=== PATIENT | male | born 1955 | race Caucasian/White ===

== ENCOUNTER 2017-05-20 09:54 | Outpatient (CLI) | payer MEDICARE, OTHER | END 2017-05-20 09:55 | disposition short-term general hospital (02) | LOC: EMS 09:54 | PROVIDERS: ATTEND Surgery | DX: R07.9 Chest pain, unspecified (principal); R53.1 Weakness | CPT/HCPCS: A0425; A0427 ==

== ENCOUNTER 2017-05-25 14:55 | Outpatient (CLI) | payer OTHER ==
[2017-05-25 15:42] LABS: CALCIUM 8.6 mg/dL (8.5-10.3)
== END 2017-05-25 14:56 | disposition home or self-care (01) ==
LOC: LAB 14:55
PROVIDERS: ATTEND Internal Medicine Interventional Cardiology
DX: E11.9 Type 2 diabetes mellitus without complications (principal)
CPT/HCPCS: 36415; 80048

== ENCOUNTER 2018-07-14 14:28 | Outpatient (CLI) | payer OTHER ==
--- NOTE | 2018-07-14 16:15 | XRAY Report ---
Reason: PNEUMONIA,COMMUNITY ACQUIRED Procedure Date: 07/14/2018 Accession Number: [id number] / [id number] Procedure: XR - Chest 2 View X-Ray CPT Code: 70979 FULL RESULT: EXAM: CHEST RADIOGRAPHY EXAM DATE: 07/14/2018 02:51 PM. CLINICAL HISTORY: Pneumonia, community acquired. COMPARISON: CHEST 2 VIEW PA/LAT 10/12/2013 10:06 PM. TECHNIQUE: 2 views. FINDINGS: Lungs/Pleura: No focal opacities evident. No pleural effusion. No pneumothorax. Normal volumes. Mediastinum: The cardiomediastinal silhouette is stable for size, not enlarged. Other: Note is made of 2 coronary stents. IMPRESSION: No pulmonary consolidation is detected. RADIA
== END 2018-07-14 14:29 | disposition home or self-care (01) ==
LOC: DI 14:28
PROVIDERS: ATTEND Internal Medicine Critical Care Medicine
DX: J18.9 Pneumonia, unspecified organism (principal)
CPT/HCPCS: 71046

== ENCOUNTER 2018-09-03 13:38 | Outpatient (CLI) | payer OTHER ==
--- NOTE | 2018-09-06 08:46 | CT Report ---
Reason: SCREENING Procedure Date: 09/03/2018 Accession Number: [id number] / [id number] Procedure: CT - Low Dose Lung Cancer Screen CPT Code: FULL RESULT: EXAM CT LUNG SCREEN EXAM DATE: 09/03/2018 02:16 PM. HISTORY: 63-year-old patient with [id number] smoking history. Currently smoking: No. Quit in 2007. COMPARISON: None. TECHNIQUE: CT examination of the entire thorax without contrast was performed using low-dose technique. Thin section coronal, axial, sagittal and MIP axial images were obtained. In accordance with CT protocol optimization, one or more of the following dose reduction techniques were utilized for this exam: automated exposure control, adjustment of mA and/or KV based on patient size, or use of iterative reconstructive technique. FINDINGS: Nodules: Right upper lobe: 3 mm nodule on image 60 series 4. 6 mm nodule image 67. 3 mm nodule image 112. Right middle lobe: None. Right lower lobe: None. Left upper lobe: None. Left lower lobe: None. Emphysema: Mild to moderate. Pleura: Unremarkable. Aorta: Mildly calcified. Mediastinum: LAD coronary stents. Coronary calcifications: Moderate to severe. Other pulmonary findings: None. Other extrapulmonary findings: None. IMPRESSION: Lung-RADS ASSESSMENT CATEGORY: 3 - probably benign. Probability of malignancy: 1-2% RECOMMENDATION: Recommend followup low-dose chest CT in 6 months as per lung RADS guidelines. RADIA
== END 2018-09-03 13:39 | disposition home or self-care (01) ==
LOC: DI 13:38
PROVIDERS: ATTEND Internal Medicine Critical Care Medicine
DX: Z12.2 Encounter for screening for malignant neoplasm of respiratory organs (principal); J43.9 Emphysema, unspecified; Z87.891 Personal history of nicotine dependence

== ENCOUNTER 2019-01-07 22:07 | Outpatient (CLI) | payer OTHER | END 2019-01-07 22:08 | disposition short-term general hospital (02) | LOC: EMS 22:07 | PROVIDERS: ATTEND Surgery | DX: R06.02 Shortness of breath (principal); R61 Generalized hyperhidrosis; R07.89 Other chest pain | CPT/HCPCS: A0425; A0427 ==

== ENCOUNTER 2020-05-21 15:54 | Emergency (ER) | payer OTHER ==
[2020-05-21 16:01] VITALS: BP 136/71
[2020-05-21] MEDS ORDERED: LIDOCAINE-MPF 2% 5 ML VIAL SUBQ STA (16:08)
[2020-05-21] MEDS ORDERED: cephALEXin 250 MG CAPSULE PO STA (16:26)
--- NOTE | 2020-05-21 16:39 | ED Physician Documentation ---
PD HPI UPPER EXT INJURY - Stated complaint Stated Complaint: NAIL THRU L MIDDLE FINGER - Chief complaint Chief Complaint: Wound - History obtained from History obtained from: Patient - History of Present Illness Location: Left, Finger (3rd digit) Where injury occurred: Home Timing - onset: How many hours ago (1) Timing - duration: Hours (1) Timing - details: Abrupt onset Pain level max: 7 Pain level now: 5 Improved by: Rest Worsened by: Moving, Palpating Recently seen: Not recently seen - Additonal information Additional information: Td UTD. Patient was applying trim to a wall when a finishing nail was shot through the left third digit, distal aspect. Review of Systems Constitutional: denies: Fever, Chills GI: denies: Vomiting Skin: denies: Rash PD PAST MEDICAL HISTORY - Past Medical History Cardiovascular: High cholesterol, Coronary artery disease Respiratory: COPD Endocrine/Autoimmune: Type 2 diabetes - Past Surgical History Past Surgical History: Yes Cardiovascular: Coronary stent - Present Medications Home Medications: Ambulatory Orders Medication Instructions Recorded Confirmed cephALEXin [Keflex] 500 mg PO Q6H #40 capsule 05/21/20 - Allergies Allergies/Adverse Reactions: Allergies Allergy/AdvReac Type Severity Reaction Status Date / Time No Known Drug Allergies Allergy Verified 05/21/20 15:58 - Social History Does the pt smoke?: No Smoking Status: Never smoker Does the pt drink ETOH?: No Does the pt have substance abuse?: No - Immunizations Immunizations are current?: Yes - POLST Patient has POLST: No PD ED PE NORMAL - Vitals Vital signs reviewed: Yes - General General: Alert and oriented X 3, No acute distress - HEENT HEENT: Moist mucous membranes - Neck Neck: Supple, no meningeal sign - Derm Derm: Warm and dry - Neuro Neuro: Alert and oriented X 3 PD ED PE EXPANDED - Extremities CECIL UE/Hands Visual: 1 - tenderness (Finishing nail enters, lateral aspect and exits through the nail on medial aspect. NVI.) Results - Vitals Vitals: Vital Signs - 24 hr 05/21/20 15:58 Temperature 36.5 C Heart Rate 79 Respiratory 16 Rate Blood Pressure 136/71 H O2 Saturation 96 Oxygen O2 Source Room air Procedures - FB removal FB location: Subcutaneous FB removal preparation: Other (digital block, 2% lidocaine.) Removal method: Foreceps FB removal aftercare: No complications, Patient tolerated well, Removed successfully PD MEDICAL DECISION MAKING - ED course Complexity details: reviewed results, considered differential, d/w patient ED course: 64-year-old male presents to the emergency department with a left third digit finishing nail through the distal aspect of the digit. This was removed. Tolerated well. Wound was cleansed, bandaged. Tetanus up-to-date. Will place on Keflex. We will have him follow-up with his doctor for further care. Patient counseled regarding signs and symptoms for which I believe and urgent re-evaluation would be necessary. Patient with good understanding of and ag reement to plan and is comfortable going home at this time This document was made in part using voice recognition software. While efforts are made to proofread this document, sound alike and grammatical errors may occur. No radiopaque foreign body. Slight irregularity at the distal tuft of the third digit with punctate adjacent calcifications. Appearance is most suggestive of nondisplaced tuft fracture. Departure - Departure Disposition: 01 Home, Self Care Clinical Impression: Foreign body in subcutaneous tissue Condition: Good Instructions: ED Foreign Body Soft Tissue Removed Follow-Up: Navin Cohen MD [Primary Care Provider] - Within 1 week Prescriptions: cephALEXin [Keflex] 500 mg PO Q6H #40 capsule Comments: Follow-up with your doctor in 1 week for a wound check. Keep the wound clean. Take all antibiotics until gone. Return if you notice redness, swelling or drainage from the wound. Discharge Date/Time: 05/21/20 16:56
--- NOTE | 2020-05-21 16:59 | XRAY Report ---
PROCEDURE: Finger(s) LT INDICATIONS: L finger vs nail TECHNIQUE: AP hand, 3 views of the third finger(s) acquired. COMPARISON: None FINDINGS: Bones: There is slight irregularity at the distal tuft of the third digit. No suspicious bony lesions . Soft tissues: No suspicious soft tissue calcifications. No radiopaque foreign body. IMPRESSION: No radiopaque foreign body. Slight irregularity at the distal tuft of the third digit with punctate a djacent calcifications. Appearance is most suggestive of nondisplaced tuft fracture. Reviewed by: Carly Tobin MD on 05/21/2020 4:58 PM PST Approved by: Carly Tobin MD on 05/21/2020 4:58 PM PST Station ID: [id number]
== END 2020-05-21 16:56 | disposition home or self-care (01) ==
LOC: ED 15:54
DX: S61.343A Puncture wound with foreign body of left middle finger with damage to nail, initial encounter (principal); W45.0XXA Nail entering through skin, initial encounter; Y93.H3 Activity, building and construction; Y92.009 Unspecified place in unspecified non-institutional (private) residence as the place of occurrence of the external cause; E11.9 Type 2 diabetes mellitus without complications
CPT/HCPCS: 73140; 99283; 99284; A9270

== ENCOUNTER 2021-07-08 10:36 | Outpatient (CLI) | payer OTHER ==
--- NOTE | 2021-07-09 07:25 | CT Report ---
PROCEDURE: CHEST WO INDICATIONS: PULMONARY NODULE TECHNIQUE: Noncontrast 1mm axial images were acquired from the pulmonary apices to the posterior costophrenic an gles. Axial 5 mm soft tissue kernel reconstructions were performed as well as 8 mm axial MIP and cor onal and sagittal 5 mm reformations. For radiation dose reduction, the following was used: automate d exposure control, adjustment of mA and/or kV according to patient size. COMPARISON: 09/03/2018 FINDINGS: Image quality: Excellent. Pulmonary Nodules: Right Upper Lobe: No suspicious pulmonary nodules.The 3 previously described right upper lobe nodules are not appreciat ed on today's exam. Right Middle Lobe: No suspicious pulmonary nodules. Right Lower Lobe: No suspicious pulmonary nodules. Left Upper Lobe: No suspicious pulmonary nodules. Lingula: No suspicious pulmonary nodules. Left Lower Lobe: No suspicious pulmonary nodules. Lungs and pleura: No acute air space opacities. Minimal upper lobe predominant pulmonary emphysemat ous changes. No pleural effusions or pneumothorax. Central and peripheral airways are patent and nor mal in caliber. Mediastinum: Heart size is normal. Extensive atherosclerotic calcifications of the coronary arterie s. There are atherosclerotic calcifications of the thoracic aorta. No pericardial effusion. No media stinal adenopathy by size criteria. Thoracic aorta and central pulmonary arteries are normal in size . Esophagus is normal in caliber. No hiatal hernia. Bones and chest wall: No suspicious bony lesions. No acute vertebral body compression fractures. N o axillary or supraclavicular adenopathy by size criteria. The thyroid is normal in size and there a re no incidental findings. Abdomen: Visualized upper abdominal solid organs and bowel loops appear normal in the absence of con trast. IMPRESSION: 1. CT chest without acute cardiopulmonary abnormalities. 2. Previously described right upper lobe pulmonary nodules are not appreciated on today's examination . Otherwise, no suspicious pulmonary nodules or mass lesions identified. No evidence for adenopathy. 3. Atherosclerosis. 4. Minimal upper lobe predominant pulmonary emphysematous change. LUNG RADS 1 (NEGATIVE): Recommend continued screening low dose chest CT in 12 months as long as patie nt continues to meet screening criteria. CLINICAL RECOMMENDATION STATEMENTS: In patients <35 years with an ITN detected on CT, MRI, or extrathyroidal ultrasound, the Committee re commends further evaluation with dedicated thyroid ultrasound if the nodule is "e1 cm and has no susp icious imaging features, and if the patient has normal life expectancy. In patients "e35 years with an ITN detected on CT, MRI, or extrathyroidal ultrasound, the Committee r ecommends further evaluation with dedicated thyroid ultrasound if the nodule is "e1.5 cm and has no s uspicious imaging features, and if the patient has normal life expectancy. (ACR, 2014) Reviewed by: Madhu Landers MD on 07/09/2021 7:24 AM PDT Approved by: Madhu Landers MD on 07/09/2021 7:24 AM PDT Station ID: [id number]
== END 2021-07-08 10:37 | disposition home or self-care (01) ==
LOC: DI 10:36
PROVIDERS: ATTEND Internal Medicine Critical Care Medicine
DX: R91.1 Solitary pulmonary nodule (principal); I25.10 Atherosclerotic heart disease of native coronary artery without angina pectoris; J43.9 Emphysema, unspecified

== ENCOUNTER 2021-08-27 12:44 | Outpatient (CLI) | payer OTHER ==
[2021-08-27 14:36] LABS: ALBUMIN 4.1 g/dL (3.2-5.5); ALBUMIN/GLOBULIN RATIO 1.3 (1.0-2.2); BILIRUBIN,TOTAL 0.7 mg/dL (0.2-1.0); CALCIUM 8.8 mg/dL (8.5-10.3); CREATININE 1.1 mg/dL (0.6-1.2); POTASSIUM 4.1 mmol/L (3.5-5.0); TOTAL PROTEIN 7.2 g/dL (6.7-8.2)
[2021-08-27 20:14] LABS: ESTIMATED AVERAGE GLUCOSE 214 mg/dL (70-100); HEMOGLOBIN A1c% 9.1 % (4.27-6.07)
== END 2021-08-27 12:45 | disposition home or self-care (01) ==
LOC: LAB.S 12:44
PROVIDERS: ATTEND Family Medicine
DX: E11.9 Type 2 diabetes mellitus without complications (principal); I10 Essential (primary) hypertension
CPT/HCPCS: 36415; 80053; 83036

== ENCOUNTER 2022-05-02 14:20 | Outpatient (CLI) | payer OTHER ==
--- NOTE | 2022-05-02 16:45 | XRAY Report ---
PROCEDURE: Hand 3 View RT INDICATIONS: PAIN IN RIGHT HAND TECHNIQUE: 3 views of the hand acquired. COMPARISON: None. FINDINGS: Bones: No acute fractures or dislocations. No suspicious bony lesions. Soft tissues: No suspicious soft tissue calcifications. IMPRESSION: No acute osseous abnormality. If symptoms persist or there is continued clinical concern, further elvin luation with MRI or CT may be helpful. Reviewed by: Joe Lynne MD on 05/02/2022 4:44 PM PST Approved by: Joe Lynne MD on 05/02/2022 4:44 PM PST Station ID: [id number]
== END 2022-05-02 14:21 | disposition home or self-care (01) ==
LOC: DI 14:20
PROVIDERS: ATTEND Nurse Practitioner Family
DX: M79.644 Pain in right finger(s) (principal)